=== PATIENT | female | born 2000 | race Caucasian/White ===

== ENCOUNTER 2020-10-14 17:14 | Emergency (ER) | payer OTHER, SELFPAY ==
[2020-10-14] MEDS ORDERED: BACITRACIN3.5 GM TOP (19:03)
[2020-10-14] MEDS ORDERED: AUGMENTIN 875-1 EACH PO (19:03)
[2020-10-14] MEDS ORDERED: IBUPROFEN800 MG PO (19:03)
== END 2020-10-14 18:20 | disposition home or self-care (01) ==
LOC: ER1 17:14
DX: S01.85XA Open bite of other part of head, initial encounter (principal); S11.95XA Open bite of unspecified part of neck, initial encounter; Z23 Encounter for immunization; W54.0XXA Bitten by dog, initial encounter; Y92.009 Unspecified place in unspecified non-institutional (private) residence as the place of occurrence of the external cause
CPT/HCPCS: 12015; 90471; 90715; 99283